=== PATIENT | female | born 1955 | race Asian ===

== ENCOUNTER 2020-08-13 11:59 | Emergency (ER) | payer OTHER ==
[~2020-08-13] VITALS: Ht 152.4 cm; Wt 47.6 kg
[2020-08-13] MEDS ORDERED: fentaNYL CITRATE 100 MCG/2 ML VL IV ONE (12:45)
[2020-08-13] MEDS ORDERED: MIDAZOLAM HCL 5 MG/ML-1ML VIAL IV ONE (12:45)
[2020-08-13 14:17] VITALS: BP 126/80
== END 2020-08-13 14:32 | disposition home or self-care (01) ==
LOC: ER 11:59
DX: S43.005A Unspecified dislocation of left shoulder joint, initial encounter (principal); X50.1XXA Overexertion from prolonged static or awkward postures, initial encounter; Y93.89 Activity, other specified; Y92.89 Other specified places as the place of occurrence of the external cause; Y99.8 Other external cause status
CPT/HCPCS: 23650; 73020; 73030; 96374; 99285; J2250; J3010